=== PATIENT | female | born 1965 | race Two or more races ===

== ENCOUNTER → 2021-02-28 | Outpatient (CLI) | payer BC, OTHER ==
[2021-03-01 17:27] LABS: Adenovirus Not Detected (NOT DETECT); Coronavirus 229E Not Detected (NOT DETECT); Coronavirus HKU1 Not Detected (NOT DETECT); Coronavirus NL63 Not Detected (NOT DETECT); Respiratory Syncytial Virus Detected (NOT DETECT)
[2021-03-01 17:28] LABS: Bordetella pertussis Not Detected (NOT DETECT); Chlamydophila pneumoniae Not Detected (NOT DETECT); Coronavirus OC43 Not Detected (NOT DETECT); Human Metapneumovirus Not Detected (NOT DETECT); Human Rhinovirus/Enterovirus Not Detected (NOT DETECT); Influenza A/2009-H1 Not Detected (NOT DETECT); Influenza A/H1 Not Detected (NOT DETECT); Influenza A/H3 Not Detected (NOT DETECT); Influenza B Not Detected (NOT DETECT); Mycoplasma pneumoniae Not Detected (NOT DETECT); Parainfluenza Virus 1 Not Detected (NOT DETECT); Parainfluenza Virus 2 Not Detected (NOT DETECT); Parainfluenza Virus 3 Not Detected (NOT DETECT); Parainfluenza Virus 4 Not Detected (NOT DETECT); SARS-Cov-2 (COVID-19), BioFire Not Detected (NOT DETECT)
== END ==
LOC: LAB SHORT 15:15
PROVIDERS: Nurse Practitioner Family
DX: R05.9 Cough, unspecified (principal)
CPT/HCPCS: 0202U

== ENCOUNTER 2021-06-20 14:03 | Emergency (ER) | payer BC, OTHER ==
[~2021-06-20] VITALS: Ht 154.9 cm; Wt 47.6 kg
[2021-06-21 07:11] LABS: HIV AB/P24 AG SCREEN Non Reactive (Non Reactive)
[2021-06-21 08:11] LABS: HCV ANTIBODY <0.1 (0.0-0.9)
== END 2021-06-20 14:51 | disposition home or self-care (01) ==
LOC: ER 14:03
PROVIDERS: Physician Assistant
DX: S61.212A Laceration without foreign body of right middle finger without damage to nail, initial encounter (principal); Z77.21 Contact with and (suspected) exposure to potentially hazardous body fluids; X58.XXXA Exposure to other specified factors, initial encounter
CPT/HCPCS: 84460; 86317; 86803; 87389; 99282